=== PATIENT | male | born 1940 | race Caucasian/White ===

== ENCOUNTER 2019-06-28 11:39 | Inpatient (IN) | payer MEDICARE, MEDICAID, SELFPAY ==
[2019-06-28] VITALS (10 sets, daily range): BP systolic 158–170; BP diastolic 75–91; PULSE 64–94; RESP 22–38; TEMP 36.4–37.6; O2SAT 93–97; BMI 35.7
--- NOTE | ~2019-06-28 | XR_ITS ---
EXAMINATION: XR chest 2V EXAM DATE: 06/28/2019 12:39 INDICATION: Shortness of breath. TECHNIQUE: Frontal and lateral projections of the chest obtained and reviewed. Comparison is made to prior examination from 03/11/2010. FINDINGS: Again there is cardiomegaly. There is single lead pacemaker/AICD device seen with tip proj ecting over the expected location of right ventricle. There is pulmonary vascular congestion. There i s indistinct reticulation with a bibasal predominance which may indicate pulmonary edema. Infection n ot excludable. Possible small pleural effusions. There is no pneumothorax suspected. There are bony d egenerative changes. IMPRESSION: 1. Findings consistent with mild CHF exacerbation. 2. Pneumonia not excludable. Reviewed, dictated and finalized at location B.
--- NOTE | 2019-06-28 11:52 | ED.SOB ---
HPI - SOB/Dyspnea General Chief Complaint: Shortness of Breath/Dyspnea Stated Complaint: sob, cough Time Seen by Provider: 06/28/19 11:48 Source: patient and family Limitations: no limitations History of Present Illness HPI Narrative: Patient presented to the emergency department for evaluation of shortness of breath. Patient reportedly was placed on azithromycin for cough, congestive type symptoms by his primary care provider, but has had worsening cough and shortness of breath over the past 2 days despite taking that medication. Patient has no history of COPD. He is not on any home oxygen. He denies any chest pain or belly pain. He denies fever. He reports mild congestion, denies sore throat. No belly pain, no weakness. Related Data Home Medications Medication Instructions Recorded Confirmed azithromycin 500 mg PO DAILY 06/28/19 06/28/19 Allergies Allergy/AdvReac Type Severity Reaction Status Date / Time No Known Allergies Allergy Verified 06/28/19 12:01 Review of Systems Review of Systems: Narrative: CONSTITUTIONAL: Denies fever, chills, or sweats. EYES: Denies visual changes, redness, or discharge. ENT: Reports rhinorrhea, congestion CARDIOVASCULAR: Denies chest pain, palpitations, or edema. RESPIRATORY: Reports cough and shortness of breath GASTROINTESTINAL: Denies abdominal pain, nausea, vomiting, or diarrhea. GENITOURINARY: Denies dysuria or hematuria. SKIN: Denies rash or itching. MUSCULOSKELETAL: Denies back pain, joint pain, or myalgia. NEUROLOGIC: Denies headache, numbness, or weakness. [facility] Past Medical History Medical History (Updated 06/28/19 @ 13:57 by Mackenzie Gallo MD) Degenerative joint disease Diabetes Gout Hyperlipidemia Hypertension Nephrolithiasis Surgical History Surgical History (Updated 06/28/19 @ 12:25 by Mackenzie Gallo MD) History of arthroplasty of right knee Family History Family History (Updated 05/11/13 @ 11:41 by DOCTOR UNKNOWN) Other Cerebrovascular accident Family history of arthritis Family history of heart disease in male family member before age 55 Social History Social History Smoking status: Heavy tobacco smoker Alcohol intake: current Exam Narrative: Exam Narrative: GENERAL: Awake, alert, conversant HEAD: Normocephalic, atraumatic. EYES: PERRLA and EOMI. ENT: Nares clear, no rhinorrhea or epistaxis. Mucous membranes moist. NECK: Supple. CHEST: Mild tachypnea, mild hypoxemia, able to converse in short sentences, coarse breath sounds HEART: Regular rate, sinus rhythm ABDOMEN:Non distended, non tender EXTREMITIES: Normal range of motion. No edema. SKIN: Warm, dry, no rash. NEURO:No focal deficits. Alert and oriented x3 Course Course Emergency Course: Patient presented to the emergency department for evaluation of cough and shortness of breath. At the time of initial assessment, patient is hypertensive, tachypneic, borderline hypoxic with increased work of breathing, moderate respiratory distress. IV access obtained and labs are drawn. Obtain blood cultures as well. Laboratory results show no severe leukocytosis. Elevation in BNP. Mild elevation in troponin. Chest x-ray concerning for cardiomegaly, pulmonary edema consistent with acute congestive heart failure exacerbation. Patient was given IV Lasix, did respond with increased urine output, but continued to have shortness of breath. Given possible pneumonia on chest x-ray slightly obscured by pulmonary edema, we will go ahead and give patient oral antibiotics as well. At this point, I feel patient symptoms are most consistent with acute congestive heart failure exacerbation. At the time is of reassessment, patient continues to be tachypneic. At this point, I feel the patient needs some respiratory support, but because the patient is a PE URI with pneumonia and hypoxia, wanted to avoid additional air slicing procedures, will place the patient on high flow nasal cannula. I d
--- NOTE | 2019-06-28 11:55 | ECG_ITS ---
Measurements Intervals Anna Rate: 100 P: 0 NV: 198 QRS: -43 QRSD: 142 T: 98 QT: 374 QTc: 482 Interpretive Statements SINUS TACHYCARDIA ATRIAL AND VENTRICULAR PREMATURE COMPLEXES LEFT AXIS DEVIATION LEFT BUNDLE BRANCH BLOCK INFERIOR INFARCT OR DUE TO LBBB BASELINE WANDER- V4-V6 ABNORMAL ECG Electronically Signed On 06-28-2019 13:30:40 CDT by Daniel Pritchard D.O.
[2019-06-28 12:11] LABS: Basophils Absolute Auto 0.1 K/mm3 (0.0-0.1); Basophils Percent Auto 0.9 % (0.2-1.2); Eosinophils Absolute Auto 0.3 K/mm3 (0-0.3); Eosinophils Percent Auto 3.6 % (0-4.4); Hematocrit 43.8 % (42.0-52.0); Hemoglobin 14.4 g/dL (14.0-18.0); Immature Granulocyte Absolute 0.04 K/mm3 (0.00-0.031); Immature Granulocyte Percent A 0.5 % (0-0.5); Lymphocytes Absolute Auto 1.63 K/mm3 (0.9-3.2); Mean Corpuscular HGB Conc 32.9 g/dl (32-36); Mean Corpuscular Volume 94.2 fl (80-100); Mean Platelet Volume 10.7 fl (7.4-10.4); Monocytes Absolute Auto 0.6 K/mm3 (0.1-0.6); Monocytes Percent Auto 7.6 % (2.6-8.5); Neutrophils Absolute Auto 5.2 K/mm3 (1.3-6.7); Neutrophils Percent Auto 66.4 % (45.5-73.1); Platelet Count Result 254 k/mm3 (150-375); Red Blood Count 4.65 M/mm3 (4.6-6.20); Red Cell Distribution Width 13.1 % (11.5-14.5); White Blood Count 7.8 K/mm3 (4.5-10.0)
[2019-06-28 12:25] LABS: Blood Urea Nitrogen 19 mg/dL (9-20); Calcium 8.9 mg/dL (8.4-10.2); Carbon Dioxide 25 mmol/L (22-30); Chloride 105 mmol/L (98-107); Estimated CRCL calculation 61 ml/min; Estimated Glomerular Filt Rate > 60; Glucose 232 mg/dL (75-110); Potassium 3.9 mmol/L (3.4-5.0); Sodium 139 mmol/L (137-145)
[2019-06-28] MEDS: IPRATROPIUM BR 0.02% INH SOLN 0.5 MG/2.5 ML VIAL 1 MG INHALATION (12:44)
[2019-06-28] MEDS: SODIUM CHLORIDE 0.9% IV 500 ML 999 ML IV CONT (12:44)
[2019-06-28] MEDS: ALBUTEROL SULFATE NEB 2.5 MG/0.5 ML INH 5 MG INHALATION (12:45)
[2019-06-28] MEDS: MAGNESIUM SULF 2 GM/WATER 50ML 2 GM/50 ML BAG IVPB (12:47)
[2019-06-28 13:04] LABS: Alveolar/Arterial O2 Gradient 61.3 mmHg; Base Excess ABG 1.4 mEq/l (+/-2.0); Carboxyhemoglobin 0.9 % THb (0-2.0); Fractional Inspired Oxygen 28 %; HCO3 ABG 27.4 mEq/l (22.0-26.0); Methemoglobin ABG 0.2 %THb (0-1.5); Oxygen Content ABG 19.8 %vol (16.0-22.0); Oxygen Saturation ABG 95.6 % (95.0-100.0); Oxyhemoglobin 94.3 % THb (90.0-100.0); PCO2 ABG 48.3 mmHg (35.0-45.0); PO2 ABG 81.3 mmHg (80.0-100.0); Reduced Hemoglobin 4.6 %THb (0-5.0); Total Hemoglobin 14.9 g/dL (12.0-18.0); pH ABG 7.371 (7.350-7.450)
[2019-06-28 13:05] LABS: Device NASAL CANNULA; Site Drawn LEFT BRACHIAL
[2019-06-28] MEDS: FUROSEMIDE INJ 40 MG/4 ML VIAL 20 MG IV PUSH ×2 (13:19→17:00)
[2019-06-28 13:41] LABS: Prothrombin Time 13.1 Seconds (11.1-14.7)
[2019-06-28 13:42] LABS: Partial Thromboplastin Time 26.4 SECONDS (22.3-36.8)
[2019-06-28 13:50] LABS: NT Pro B Type Natriuretic Pept 4110 PG/ML (5-100)
[2019-06-28 13:53] LABS: Troponin I 0.056 ng/mL (0.000-0.034)
[2019-06-28] MEDS: DOXYCYCLINE HYCLATE 100 MG TABLET PO ×2 (14:45→21:35)
--- NOTE | 2019-06-28 15:55 | PCRCNOTE ---
PT. WAS NOT STARTED ON BIPAP IN E.D. PER DR. LOUIE. DR LOUIE STATED TO PLACE ON A HIGH FLOW NASAL CANNULA INSTEAD. O2 SATS 95% ON 7LPM O2 VIA HIGH FLOW NASAL CANNULA.
[2019-06-28 16:20] LABS: Glucose Point of Care 155 (65-105)
--- NOTE | 2019-06-28 17:03 | PM.IMHP ---
H&P: HPI History of Present Illness Chief complaint: chf exacerbation,pneumonia,hypoxemia Narrative: Hai Fontana is a 78 year old male with a past medical history of congestive heart failure. He stated he has been taking all of his routine medication. He has been more short of breath for last month. He short of breath with exertion. And trace edema to his extremities. He has no fever chills. The patient has not been exposed to anybody has been sick or has a fever. The patient stated that he did have some congestion you in his sinuses and upper chest and was unable to use his BiPAP. The patient recently took Z-Marcos about a week ago and did not have any related. He has had a productive cough of clear phlegm. His shortness of breath got worse the last 2 days. He has no sore throat. The patient was given magnesium and IV Lasix. He was given doxycycline as well. Looks like he got 2 doses of 20 mg of Lasix today. He does have a regular slag expander and states that he probably had an echo approximately 6 weeks ago. Date of service 06/28/2019 Review of Systems Review of Systems: Narrative: No fever or chills. All systems reviewed & are unremarkable except as noted in HPI and below Constitutional: Constitutional: Reports as per HPI and Reports no additional constitutional complaints Eyes: Eyes: Reports as per HPI and Reports no additional eye complaints ENT: Reports system reviewed and no additional complaints, except as documented and Reports Normal hearing present Cardiovascular: Cardiovascular: Reports no additional cardiovascular complaints Respiratory: Respiratory: Reports no additional respiratory complaints and Reports no additional respiratory complaints Gastrointestinal: Gastrointestinal: Reports as per HPI and Reports no additional gastrointestinal complaints Musculoskeletal: Musculoskeletal: Reports no additional musculoskeletal complaints Integumentary/Breasts: Skin/Breast: Reports system reviewed and no additional complaints, except as docu and Reports as per HPI Neurologic: Reports system reviewed and no additional complaints, except as documented, Reports as per HPI and Reports Normal hearing present Psychiatric: Psychiatric: Reports no additional psychiatric complaints and Reports as per HPI Endocrine: Endocrine: Reports no additional endocrine complaints Hematologic/Lymphatic: Hematologic/Lymphatic: Reports no additional hematologic/lymphatic complaints Allergic/Immunologic: Allergic/Immunologic: Reports no additional allergic/immunologic complaints [facility] Past Medical History Medical History (Updated 06/28/19 @ 17:19 by Dinora Ayala NP) Anxiety CHF (congestive heart failure), NYHA class I Degenerative joint disease Diabetes Gout Hyperlipidemia Hypertension Nephrolithiasis Pacemaker Surgical History Surgical History (Updated 06/28/19 @ 12:25 by Mackenzie Gallo MD) History of arthroplasty of right knee Family History Family History (Updated 06/28/19 @ 17:11 by Dinora Ayala NP) Father Heart disease Mother Hypertension Dementia Other Cerebrovascular accident Family history of arthritis Family history of heart disease in male family member before age 55 Social History Social History (Updated 06/28/19 @ 17:12 by Dinora Ayala NP) Social History: Is with his . 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 He has 4 children. Used to smoke long time ago. No alcohol use or illicit drugs. He is a full code. Smoking status: Former smoker Tobacco type: cigarettes Second hand tobacco smoke exposure: Yes Smoking end date: 06/28/19 Alcohol intake: current Drinks per week: 2 Substance use: never Living arrangements: with family Occupation/Education: occupation Gender identity (if verbalized by the patient): Male Spiritual care concerns: No Agree to blood products: No Meds Home Medications and Allergies Home Medications Medication
--- NOTE | 2019-06-28 17:26 | ADMGEN ---
This patient, Hai Fontana, was admitted to Intensive Care Unit-5. Patient/family oriented to hospital policies and general routines including ID bracelet, bed and alarms, visiting hours, pain management, procedures, bathroom and other care routines, personal items, smoking policy, room service/diet, and visiting hours. Valuables list has been completed. Information on how to activate the Rapid Response Team has been discussed. Patient/Family are encouraged to report perceived risks to care and to ask questions if they do not understand what they are told or what they should do.
[2019-06-28 18:50] LABS: Alanine Aminotransferase 45 U/L (4-50); Albumin Level 3.5 g/dL (3.5-5.1); Alkaline Phosphatase 94 U/L (38-126); Aspartate Amino Transferase 36 U/L (17-59); Bilirubin,Total 0.5 mg/dL (0.2-1.3); CRP 0.6 mg/dL (<1.0); Lactate Dehydrogenase 400 U/L (313-618)
[2019-06-28 19:04] LABS: Troponin I 0.073 ng/mL (0.000-0.034)
[2019-06-28] MEDS: carvediloL 25 MG TABLET PO (20:23)
[2019-06-28] MEDS: GLIMEPIRIDE 2 MG TABLET 4 MG PO (20:23)
[2019-06-28 20:45] LABS: Glucose Point of Care 139 (65-105)
[2019-06-28 22:22] LABS: Glucose Point of Care 114 (65-105)
[2019-06-28 22:40] LABS: Lactic Acid Reflex 1.1 mmol/L (0.7-2.1)
[2019-06-29] VITALS (13 sets, daily range): BP systolic 127–168; BP diastolic 53–105; PULSE 69–98; RESP 20–32; TEMP 36.1–36.9; O2SAT 96–99
--- NOTE | 2019-06-29 | ECHO_ITS ---
Patient Info Name: Hai Fontana Age: 78 years : 1940 Gender: Male Ht: 68 in Wt: 235 lbs BSA: 2.30 m2 HR: 88 bpm BP: 179 / 72 mmHg Heart Rhythm: Paced Technical Quality: Fair Exam Date: 06/29/2019 9:52 AM Exam Location: [facility] Patient Status: Inpatient Admit Date: 06/28/2019 Staff Ordering Physician: Dinora Ayala NP Potato Loader: Haris Shane RDCS Attending Provider: Sonido Ovalle MD Referring Physician: Lucy MONTALVO; Exam Type: CA echo doppler color flow Study Info Indications I50.9 - Heart failure, unspecified Complete two-dimensional, color flow and Doppler transthoracic echocardiogram is performed. History/Risk Factors CHF exacerbation; SOB, DM2, HTN. Summary 1. Left ventricular chamber dimension is moderately enlarged. 2. Left ventricular systolic function is severely reduced, estimated at 30-35%. 3. Linear artifact in right ventricle suggestive of catheter(s), pacemaker lead(s), or ICD lead(s). 4. There is mild aortic valve sclerosis. 5. Valve area calculated to 1.47 cm2 using the continuity equation. 6. There is mild mitral valve regurgitation. Left Ventricle Left ventricular chamber dimension is moderately enlarged. Left ventricular systolic function is severely reduced, estimated at 30-35%. The left ventricular diastolic function is grade I diastolic dysfunction. Right Ventricle Right ventricular chamber dimension is normal. Linear artifact in right ventricle suggestive of catheter(s), pacemaker lead(s), or ICD lead(s). Left Atria Left atrial chamber dimension is mildly enlarged. Right Atria Right atrial chamber dimension is normal. Aortic Valve The aortic valve is trileaflet. There is mild aortic valve sclerosis. There is mild aortic valve stenosis. Valve area calculated to 1.47 cm2 using the continuity equation. Pulmonic Valve The pulmonic valve is not well visualized. Mitral Valve The mitral valve has normal leaflets. There is mild mitral valve regurgitation. Tricuspid Valve The tricuspid valve leaflets are not well visualized. Pericardium/Pleural The pericardium appears normal. There is trivial pericardial effusion. Aorta The aortic root size at the sinus of Valsalva is normal. Left Ventricular Outflow Tract Name Value Normal LVOT Doppler LVOT Peak Velocity 89 cm/s LVOT Peak Gradient 3 mmHg LVOT Mean Gradient 2 mmHg LVOT VTI 16 cm LVOT VTI/AV VTI Ratio 0.5 Mitral Valve Name Value Normal MV Doppler MV Decel Tucker 535 cm/s2 MV PHT 44 ms MV Area (PHT) 5.0 cm2 4.0-5.0 MV Diastolic Function MV E Peak Velocity 81 cm/s MV A Pe
[2019-06-29 04:50] LABS: Hemoglobin A1C 7.8 % (<5.7)
[2019-06-29 06:16] LABS: Alanine Aminotransferase 42 U/L (4-50); Albumin Level 3.8 g/dL (3.5-5.1); Alkaline Phosphatase 108 U/L (38-126); Aspartate Amino Transferase 29 U/L (17-59); Bilirubin,Total 0.8 mg/dL (0.2-1.3); Blood Urea Nitrogen 20 mg/dL (9-20); Calcium 9.3 mg/dL (8.4-10.2); Carbon Dioxide 33 mmol/L (22-30); Chloride 99 mmol/L (98-107); Estimated CRCL calculation 55 ml/min; Estimated Glomerular Filt Rate 59; Glucose 163 mg/dL (75-110); Magnesium 1.6 mg/dL (1.6-2.3); Potassium 4.2 mmol/L (3.4-5.0); Sodium 137 mmol/L (137-145)
[2019-06-29 06:32] LABS: Thyroid Stimulating Hormone Reflex 0.959 uIU/mL (0.465-4.68)
[2019-06-29 07:23] LABS: Glucose Point of Care 155 (65-105)
[2019-06-29] MEDS: carvediloL 25 MG TABLET PO ×2 (08:54→16:28)
[2019-06-29] MEDS: GLIMEPIRIDE 2 MG TABLET 4 MG PO ×2 (08:54→16:28)
[2019-06-29] MEDS: allopurinoL 300 MG TABLET PO (08:54)
[2019-06-29] MEDS: buPROPion HCL XL (24 HR) 150 MG TABCR PO (08:54)
[2019-06-29] MEDS: SPIRONOLACTONE 25 MG TABLET PO (08:54)
[2019-06-29] MEDS: DOXYCYCLINE HYCLATE 100 MG TABLET PO ×2 (08:54→20:16)
[2019-06-29] MEDS: FUROSEMIDE INJ 40 MG/4 ML VIAL IV PUSH ×2 (08:55→16:28)
[2019-06-29 12:45] LABS: Glucose Point of Care 184 (65-105)
--- NOTE | 2019-06-29 13:07 | PM.IMPN ---
Progress Note: A&P Assessment and Plan (1) Acute exacerbation of congestive heart failure: Qualifiers: Heart failure type: systolic Qualified Code(s): I50.23 - Acute on chronic systolic (congestive) heart failure Code(s): I50.9 - Heart failure, unspecified Status: Acute Assessment and Plan: Clinically improving. Stil requiring oxygen at 2.5 L but does not use at home. Will continue IV Lasix. Continue Coreg and spironolactone. Echocardiogram results pending. Will transfer to medical floor as stable. Of note, imaging on admission with findings more consistent with CHF exacerbation but pneumonia not excludable. Clinically does not appear to have pneumonia will leave oral doxycycline in place for now as COVID-19 testing was initiated through [facility]. COVID-19 testing currently pending. Echocardiogram results available this evening with EF 30-35%. Patient already with AICD in place. (2) Elevated troponin: Code(s): R79.89 - Other specified abnormal findings of blood chemistry Status: Acute Assessment and Plan: Minimal elevation. No chest pain. No ACS. Result of CHF. Telemetry reviewed on 06/29/2019 with sinus rhythm. Will continue to monitor clinically. (3) Diabetes: Qualifiers: Diabetes mellitus complication status: without complication Diabetes mellitus terminal superintendent insulin use: with group home use Diabetes mellitus type: type 2 Qualified Code(s): E11.9 - Type 2 diabetes mellitus without complications; Z79.4 - correction (current) use of insulin Code(s): E11.9 - Type 2 diabetes mellitus without complications Status: Chronic Assessment and Plan: HgbA1C 7.8. Glucose reviewed on 06/29/2019 with acceptable readings below 200 this morning. Lantus held this am with glimepiride given. Will continue to monitor glucose and adjust treatment as needed. Sliding scale insulin as available. (4) Hypertension: Qualifiers: Hypertension type: essential hypertension Qualified Code(s): I10 - Essential (primary) hypertension Code(s): I10 - Essential (primary) hypertension Status: Chronic Assessment and Plan: Blood pressure reviewed on 06/29/2019. Will continue with Coreg, spironolactone and IV Lasix in place. Will adjust treatment as needed. (5) Gout: Qualifiers: Chronicity: chronic Gout etiology: unspecified cause Gout site: unspecified site Presence of tophus: without tophus Qualified Code(s): M1A.9XX0 - Chronic gout, unspecified, without tophus (tophi) Code(s): M10.9 - Gout, unspecified Status: Chronic Assessment and Plan: Continue allopurinol. No acute issue. (6) Anxiety: Code(s): F41.9 - Anxiety disorder, unspecified Status: Acute Assessment and Plan: Mood presently stable. Will continue bupropion. (7) DVT prophylaxis: Code(s): Z29.9 - Encounter for prophylactic measures, unspecified Status: Acute Assessment and Plan: SCDs. Time Spent With Patient Time with patient: 15 - 25 minutes Subjective Date/time seen: 06/29/19 13:07 Interval history: Date of Service: 06/29/2019. Admitted with CHF exacerbation, possible pneumonia. Feels better today. Wants to go home. Denies shortness of breath and cough. Denies chest pain. Does complain of abdominal upset. No vomiting. Review of Systems Review of Systems: Narrative: Feeling better. Constitutional: Constitutional: Denies chills and Denies fever(s) ENT: Denies nasal congestion and Denies nasal discharge Cardiovascular: Cardiovascular: Denies chest pain Respiratory: Respiratory: Denies cough and Denies dyspnea Gastrointestinal: Gastrointestinal: Denies abdominal pain, Denies nausea and Denies vomiting Comments: stomach upset Genitourinary: Comments: catheter in place Musculoskeletal: Musculoskeletal: Reports no additional musculoskeletal complaints Integumentary/Breasts: Skin/Breast:
--- NOTE | 2019-06-29 15:19 | PC.NURSE ---
Patient arrived on 3 med/surg @1500. Patient A&Ox3, call light placed by patient, bed alarm on, patient oriented to room.
--- NOTE | 2019-06-29 15:39 | PC.NURSE ---
Patient was on droplet precaution. Patient on 3L/NC.
--- NOTE | 2019-06-29 16:30 | PC.NURSE ---
Noted Covid testing cancelled per reference lab. Verified with Delfina Shaw RN that swabs sent to state reference lab this am and results are pending.
[2019-06-29 16:40] LABS: Glucose Point of Care 153 (65-105)
[2019-06-29 23:44] LABS: Glucose Point of Care 206 (65-105)
[2019-06-30] VITALS (10 sets, daily range): BP systolic 125–136; BP diastolic 50–67; PULSE 69–92; RESP 18–22; TEMP 36.4–37.3; O2SAT 86–97
[2019-06-30 06:52] LABS: Blood Urea Nitrogen 27 mg/dL (9-20); Carbon Dioxide 36 mmol/L (22-30); Chloride 97 mmol/L (98-107); Estimated CRCL calculation 60 ml/min; Estimated Glomerular Filt Rate > 60; Glucose 183 mg/dL (75-110); Potassium 4.1 mmol/L (3.4-5.0); Sodium 136 mmol/L (137-145)
[2019-06-30 09:46] LABS: Glucose Point of Care 168 (65-105)
[2019-06-30] MEDS: FUROSEMIDE INJ 40 MG/4 ML VIAL IV PUSH (09:55)
[2019-06-30] MEDS: GLIMEPIRIDE 2 MG TABLET 4 MG PO (09:55)
[2019-06-30] MEDS: buPROPion HCL XL (24 HR) 150 MG TABCR PO (09:56)
[2019-06-30] MEDS: carvediloL 25 MG TABLET PO (09:56)
[2019-06-30] MEDS: SPIRONOLACTONE 25 MG TABLET PO (09:56)
[2019-06-30] MEDS: allopurinoL 300 MG TABLET PO (10:00)
[2019-06-30] MEDS: DOXYCYCLINE HYCLATE 100 MG TABLET PO (10:00)
--- NOTE | 2019-06-30 11:42 | PM.IMPN ---
Progress Note: A&P Assessment and Plan (1) Acute exacerbation of congestive heart failure: Qualifiers: Heart failure type: systolic Qualified Code(s): I50.23 - Acute on chronic systolic (congestive) heart failure Code(s): I50.9 - Heart failure, unspecified Status: Acute Assessment and Plan: Clinically improved. He does remain on 2 L of oxygen which he normally does not use at home but has been unable to use his CPAP for sleep apnea due to COVID suspect. Will still provide order for home oxygen with arrangements to be made prior to discharge. Will return him to his home oral Lasix dose as he has been diuresing well. Continue Coreg and spironolactone. Echocardiogram with EF 30-35% but already has AICD in place. As noted, COVID-19 testing was initiated through [facility] but clinically not consistent with pneumonia and will therefore not continue oral doxycycline at discharge. Will discharge today. Discontinue Rodriguez catheter. (2) Elevated troponin: Code(s): R79.89 - Other specified abnormal findings of blood chemistry Status: Acute Assessment and Plan: Minimal elevation. No chest pain. No ACS. Result of CHF. No additional evaluation needed this time. Echocardiogram as noted above. (3) Diabetes: Qualifiers: Diabetes mellitus type: type 2 Diabetes mellitus director long term care insulin use: with director long term care use Diabetes mellitus complication status: without complication Qualified Code(s): E11.9 - Type 2 diabetes mellitus without complications; Z79.4 - [facility] (current) use of insulin Code(s): E11.9 - Type 2 diabetes mellitus without complications Status: Chronic Assessment and Plan: HgbA1C 7.8. Glucose reviewed on 06/30/2019 with acceptable readings. Lantus has been held here with glimepiride continued. Suspect blood sugar will increase again at home and may resume Lantus at home although he should continue to monitor glucose and follow-up with primary physician. (4) Hypertension: Qualifiers: Hypertension type: essential hypertension Qualified Code(s): I10 - Essential (primary) hypertension Code(s): I10 - Essential (primary) hypertension Status: Chronic Assessment and Plan: Blood pressure reviewed on 06/30/2019 and stable. Will continue Coreg, spironolactone and Lasix. (5) Gout: Qualifiers: Gout site: unspecified site Gout etiology: unspecified cause Chronicity: chronic Presence of tophus: without tophus Qualified Code(s): M1A.9XX0 - Chronic gout, unspecified, without tophus (tophi) Code(s): M10.9 - Gout, unspecified Status: Chronic Assessment and Plan: Continue allopurinol. No acute issue. (6) Anxiety: Code(s): F41.9 - Anxiety disorder, unspecified Status: Acute Assessment and Plan: Mood stable. Will continue bupropion. (7) DVT prophylaxis: Code(s): Z29.9 - Encounter for prophylactic measures, unspecified Status: Acute Assessment and Plan: SCDs. Time Spent With Patient Time with patient: 15 - 25 minutes Subjective Date/time seen: 06/30/19 11:42 Interval history: Date of Service: 06/30/2019. Admitted with CHF exacerbation, possible pneumonia. Feeling better. Denies shortness of breath and cough. No chest pain. No abdominal pain. Review of Systems Review of Systems: Narrative: Feeling better. Constitutional: Constitutional: Denies chills and Denies fever(s) ENT: Denies nasal congestion and Denies nasal discharge Cardiovascular: Cardiovascular: Denies chest pain Respiratory: Respiratory: Denies cough and Denies dyspnea Gastrointestinal: Gastrointestinal: Denies abdominal pain, Denies nausea and Denies vomiting Genitourinary: Comments: catheter in place Musculoskeletal: Musculoskeletal: Reports no additional musculoskeletal complaints Integumentary/Breasts: Skin/Breast: Denies rash Neurologic: Denies headache(s) Psychiatri
[2019-06-30 13:11] LABS: Glucose Point of Care 213 (65-105)
[2019-06-30] MEDS: INSULIN ASPART (*BKC) 100 UNITS/ML SUB-Q (13:39)
--- NOTE | 2019-06-30 15:42 | HOMEO2EVAL ---
Home Oxygen Evaluation RC: Home Oxygen (O2) Evaluation Start: 06/30/19 15:37 Freq: Status: Active Protocol: RPE Activity Type Activity Date Activity User E-Sign Co-Sign Detail Recorded Client Recorded Date Recorded By Document 06/30/19 15:29 [facility] [id number] 06/30/19 15:40 [facility] Document 06/30/19 15:30 [place] [email or web address] 06/30/19 15:40 [facility] Document 06/30/19 15:33 [facility] [id number] 06/30/19 15:40 [facility] Document 06/30/19 15:36 [facility] [id number] 06/30/19 15:41 [facility] Document 06/30/19 15:38 [facility] [id number] 06/30/19 15:40 [facility] 06/30/19 06/30/19 06/30/19 15:29 15:30 15:33 Home O2 Evaluation Test Phase Resting Resting Exercise Oxygen Delivery Room Air Nasal Cannula Nasal Cannula Oxygen Flow Rate (L/min) 2 2 Pulse Oximetry (90-100 %) 86 L 88 L 90 Pulse Rate (60-100 beats/min) 82 88 85 Activity Tolerance Good Good Rating of Perceived Dyspnea (PD) +1 Mild, +1 Mild, Noticeable to Noticeable to the Participant the Participant but Not to an but Not to an Observer Observer Rate of Perceived Exertion (PE) Treatment Charges O2 Evaluation 06/30/19 06/30/19 15:36 15:38 Home O2 Evaluation Test Phase Exercise Resting Oxygen Delivery Nasal Cannula Nasal Cannula Oxygen Flow Rate (L/min) 2 2 Pulse Oximetry (90-100 %) 90 90 Pulse Rate (60-100 beats/min) 92 91 Activity Tolerance Good Good Rating of Perceived Dyspnea (PD) +1 Mild, +1 Mild, Noticeable to Noticeable to the Participant the Participant but Not to an but Not to an Observer Observer Rate of Perceived Exertion (PE) 9 Very light 9 Very light Treatment Charges
--- NOTE | 2019-06-30 16:48 | PM.DS ---
DS: Diagnosis Admitting Diagnosis Admitting Diagnosis: Acute on chronic systolic (congestive) heart failure Discharge Diagnosis (1) Acute exacerbation of congestive heart failure: Qualifiers: Heart failure type: systolic Qualified Code(s): I50.23 - Acute on chronic systolic (congestive) heart failure Code(s): I50.9 - Heart failure, unspecified Status: Acute (2) Elevated troponin: Code(s): R79.89 - Other specified abnormal findings of blood chemistry Status: Acute (3) Diabetes: Qualifiers: Diabetes mellitus complication status: without complication Diabetes mellitus continuous churn buttermaker insulin use: with continuous churn buttermaker use Diabetes mellitus type: type 2 Qualified Code(s): E11.9 - Type 2 diabetes mellitus without complications; Z79.4 - intermediate project manager (current) use of insulin Code(s): E11.9 - Type 2 diabetes mellitus without complications Status: Chronic (4) Hypertension: Qualifiers: Hypertension type: essential hypertension Qualified Code(s): I10 - Essential (primary) hypertension Code(s): I10 - Essential (primary) hypertension Status: Chronic (5) Gout: Qualifiers: Chronicity: chronic Gout etiology: unspecified cause Gout site: unspecified site Presence of tophus: without tophus Qualified Code(s): M1A.9XX0 - Chronic gout, unspecified, without tophus (tophi) Code(s): M10.9 - Gout, unspecified Status: Chronic (6) Anxiety: Code(s): F41.9 - Anxiety disorder, unspecified Status: Acute DS: Summary Hospital Course Reason for hospitalization: Shortness of breath. Hospital Course: Date of Service of Discharge: June 30, 2019. History of Present Illness: Patient is a 78-year-old gentleman with known history of congestive heart failure, hypertension, hyperlipidemia and diabetes who presented to the emergency room with complaint of shortness of breath. He reports being more short of breath for the last month. Shortness of breath occurs with exertion. He also notes trace edema to his extremities. No recent fever or chills. No known exposures. He has had productive cough with clear sputum. In the emergency room, findings were more consistent with congestive heart failure but there was concern for possible pneumonia. He was therefore given Lasix as well as doxycycline. COVID testing was initiated. He was admitted for further evaluation and treatment. Course in Hospital: Patient was admitted to the IMU. He was started on IV Lasix with rapid improvement in his shortness of breath. He initially was on 5 L of oxygen but decreased to 2.5 L by the following morning after admission. He was eventually able to wean to 2 L of oxygen and was set up with home oxygen for discharge. Of note, patient was unable to use his CPAP while here in the hospital due to COVID suspect status. COVID testing results were not available by the time of discharge with patient advised to continue self isolation at discharge until results are known. In addition to IV Lasix patient was continued on Coreg and spironolactone. A new echocardiogram was obtained with EF 30-35% the patient already with AICD placed. He was able to transfer from IMU to the medical floor on 06/29/2019 where he remained for the duration of his stay. He did receive doxycycline during his stay but not continued as he was not felt to have pneumonia. He did have a Rodriguez catheter in place due to mobility issues but this was removed prior to discharge without difficulties. Patient's blood pressure was monitored throughout his stay and stable on his Coreg, spironolactone and Lasix. Glucose was also monitored. His Lantus was held while here with glimepiride continue due to lower glucose levels while in hospital. Plan to resume Lantus at home as it is expected he will resume his usual eating habits. He was however advised to monitor glucose and call his physician if glucose levels are too high or
--- NOTE | 2019-06-30 17:03 | PC.NURSE ---
1700 Discharged home with home 02 at 2l/min. Discharged instructions reviewed with patient including Covid-19 handout. Verbalized understanding of instructions given. Althea Jon RN
--- NOTE | 2019-07-06 11:47 | PC.NURSE ---
New M[place]racken spoke with patient and on July 04, 2019. Retest offered. Patient declined retest.
== END 2019-06-30 17:00 | disposition home or self-care (01) | DRG 293 ==
LOC: ANHED 14:36 → ANHICU 14:46 → ANH3MEDSUR 06-30 12:02 → ANHICU 07-02 14:08
PROVIDERS: Nurse Practitioner; Admitting Provider Internal Medicine; Emergency Provider Emergency Medicine; PCP Nurse Practitioner Adult Health; Visit Provider Hospitalist
DX: I11.0 Hypertensive heart disease with heart failure (principal); I50.23 Acute on chronic systolic (congestive) heart failure; Z20.828 Contact with and (suspected) exposure to other viral communicable diseases; R09.02 Hypoxemia; R79.89 Other specified abnormal findings of blood chemistry; E11.9 Type 2 diabetes mellitus without complications; F41.9 Anxiety disorder, unspecified; I10 Essential (primary) hypertension; M1A.9XX0 Chronic gout, unspecified, without tophus (tophi); E78.5 Hyperlipidemia, unspecified; M19.90 Unspecified osteoarthritis, unspecified site; G47.30 Sleep apnea, unspecified; Z96.651 Presence of right artificial knee joint; Z95.0 Presence of cardiac pacemaker; Z87.891 Personal history of nicotine dependence; Z79.4 Long term (current) use of insulin
CPT/HCPCS: 36415; 36600; 71046; 80048; 80053; 80076; 82375; 82728; 82805; 83036; 83050; 83605; 83615; 83735; 83880; 84443; 84484; 85025; 85610; 85730; 86140; 87040; 87635; 87804; 93005; 93306; 94618; 94640; 96365; 96375; 99285; A9270; J1815; J1940; J3475; J7040; U0002

== ENCOUNTER 2019-08-29 12:34 | Outpatient (CLI) | payer MEDICARE, MEDICAID, SELFPAY ==
--- NOTE | 2019-09-03 13:10 | WPDSIXMINUTE ---
Six Minute Walk Six Minute Walk: DOS: 08/29/2019 REQUESTING: Judith Kelsey NP REASON FOR TESTING: post pneumonia SIX MINUTE WALK This test was conducted per ATS guidelines. The initial saturation was 93%, and the pulse was 83. He used a walker during the test, walked for 6 minutes without stopping, with saturation between 87% and 96%. The pulse ranged from 68 to 97. There were periodic lapses in the oximeter reading which were due to artifact. He walked a total of 250 feet, 76.2 meters without stopping to rest. Towards the end of the walk, he had saturation between 87-89% for one minute, and he improved during the recovery period gradually increasing to 96%. IMPRESSION: Desaturation without sustained hypoxemia. Patient does not meet criteria for supplemental oxygen with exertion.
== END 2019-08-29 12:35 | disposition home or self-care (01) ==
PROVIDERS: PCP Nurse Practitioner Adult Health; Visit Provider Nurse Practitioner Adult Health
DX: Z99.81 Dependence on supplemental oxygen (principal)
CPT/HCPCS: 94618

== ENCOUNTER 2020-02-19 09:05 | Inpatient (IN) | payer MEDICARE, MEDICAID, SELFPAY ==
[2020-02-19] VITALS (27 sets, daily range): BP systolic 43–133; BP diastolic 25–113; PULSE 67–132; RESP 16–41; TEMP 35.9–36.3; O2SAT 80–100
--- NOTE | ~2020-02-19 | XR_ITS ---
XR chest 1V 02/19/2020 10:10 Indication: Transient alteration of awareness. Procedure: AP view of the chest Comparison: Comparison to multiple prior studies sequentially, with oldest reviewed study dated 04/04. Findings: Cardiomegaly. Pacemaker lead tip in the right ventricle. No focal air space disease, pulmon andrew edema, pleural effusion or suspected pneumothorax. No acute osseous abnormality. The degenerative changes of the glenohumeral joints. Impression: 1: No acute cardiopulmonary disease. 2: Cardiomegaly. Reviewed, dictated and finalized at location B. AL DECORATOR Impression: 1: No acute cardiopulmonary disease. 2: Cardiomegaly.
--- NOTE | ~2020-02-19 | XR_ITS ---
EXAMINATION: XR chest ET placement, XR abdomen NG/feed tube insert DATE: 02/19/2020 18:33 INDICATION: Endotracheal tube placement. Orogastric tube placement. TECHNIQUE: 1. Frontal view of the chest was obtained. 2. AP view of the abdomen was obtained. COMPARISON: Chest radiograph dated 02/19/2020 at 4:29 PM FINDINGS: Interval placement of an endotracheal tube with distal tip 4.0 cm above the chelsi. Right internal ju gular central venous catheter with distal tip at the midsuperior vena cava. Pulmonary vascular conges tion and mild perihilar edema. Streaky opacities at the bilateral lung bases which could represent at electasis or pneumonia. Cardiomegaly. Single lead cardiac pacemaker/defibrillator with distal tip at the right ventricle. Nasogastric tube tip in proximal side port in the body of the stomach. Gas is se en within the distal transverse colon. The lower abdomen and pelvis are excluded from the field-of-vi ew. IMPRESSION: 1. The tracheal tube and nasogastric tube in expected positions. 2. Likely congestive heart failure with cardiomegaly and mild perihilar edema. 3. Mild streaky bibasilar opacities and favor atelectasis over pneumonia. Reviewed, dictated and finalized at location A. TS BOOK WRITER IMPRESSION: 1. The tracheal tube and nasogastric tube in expected positions. 2. Likely congestive heart failure with cardiomegaly and mild perihilar edema. 3. Mild streaky bibasilar opacities and favor atelectasis over pneumonia.
--- NOTE | ~2020-02-19 | CT_ITS ---
EXAMINATION: CT brain wo con DATE: 02/19/2020 10:03 INDICATION: Altered mental status TECHNIQUE: Computed tomography (CT) of the head was performed without intravenous contrast. The dose- length product was 605.33 mGy-cm. The mA was adjusted according to patient size. Iterative reconstruc tion technique was employed. COMPARISON: None FINDINGS: No acute intracranial hemorrhage, infarction, mass or mass effect. Generalized atrophy. The re are scattered mild periventricular and subcortical white matter changes, most likely related to sm all vessel ischemic disease (microangiopathy). No ventriculomegaly or midline shift. Paranasal sinuse s and mastoids are pneumatized. No depressed skull fractures IMPRESSION: 1. . No acute intracranial abnormality. 2: Chronic age-related findings. Reviewed, dictated and finalized at location B. MARKETING REPRESENTATIVE
--- NOTE | ~2020-02-19 | CT_ITS ---
EXAMINATION: CT abdomen pelvis wo con EXAM DATE: 02/19/2020 11:47 INDICATION: Sepsis. TECHNIQUE: Spiral CT of the abdomen and pelvis was performed without contrast. Axial, coronal and s agittal images were reviewed. The dose-length product (DLP) for this examination was 1401.46 mGy-cm. The exposure was tailored according to patient size (auto mA exposure control), and iterative recon struction (ASIR) was used as additional dose reduction technique. Comparison is made to prior examina tion from 05/02/2012. FINDINGS: Small amount of ascites in the left colic gutter. There is subcutaneous edema extending dimitri ng both flanks but more on the left. Left adrenal gland lesion measuring 1.8 cm unchanged consistent with benign histology, probably adeno ma. The liver, spleen, adrenal glands and pancreas are otherwise unremarkable. Gallbladder is unrem arkable. No biliary obstruction. There is no nephrolithiasis or hydronephrosis. There are prostat e radiation seeds. The bladder is unremarkable. There is no retroperitoneal or pelvic lymphadenopat hy. There is moderate scattered arteriosclerotic disease. The appendix is normal. The stomach and small bowel are unremarkable. There is expected amount of c olonic stool. No free intraperitoneal gas. There is cardiomegaly and small pericardial effusion. Left basilar subsegmental atelectasis. Severe right hip osteoarthritis. IMPRESSION: 1. No acute intra-abdominal findings. 2. Posterior flank subcutaneous edema. 3. Cardiomegaly and small pericardial effusion. 4. Left adrenal adenoma. Reviewed, dictated and finalized at location A. O NARRATOR
--- NOTE | ~2020-02-19 | XR_ITS ---
EXAMINATION: XR chest port-a-cath/central DATE: 02/19/2020 16:37 INDICATION: Central line placement TECHNIQUE: frontal view of the chest was obtained. COMPARISON: Chest radiograph dated 02/19/2020 FINDINGS: Increasing pulmonary vascular congestion and mild perihilar opacities suggesting pulmonary edema. Carmen ear discoid atelectasis at the lateral left lower lung zone superimposed. No pleural effusion or pneu mothorax. Cardiomegaly. Cardiac pacemaker/AICD with distal tip at the right ventricle. Right internal jugular central venous catheter with distal tip at the caudal superior vena cava. Severe left glenoh umeral osteoarthritis. IMPRESSION: 1. Pulmonary vascular congestion and mild perihilar opacities and would favor pulmonary edema over pn eumonia. 2. Cardiomegaly. Reviewed, dictated and finalized at location A. WORKER BROODER [employer]ARM IMPRESSION: 1. Pulmonary vascular congestion and mild perihilar opacities and would favor p ulmonary edema over pneumonia. 2. Cardiomegaly.
[2020-02-19 09:17] LABS: Glucose Point of Care 94 (65-105)
--- NOTE | 2020-02-19 09:24 | ECG_ITS ---
Measurements Intervals [place] Rate: 97 P: AL: 0 QRS: 228 QRSD: 157 T: 70 QT: 385 QTc: 491 Interpretive Statements ATRIAL FIBRILLATION RIGHT AXIS DEVIATION LEFT BUNDLE BRANCH BLOCK INFERIOR INFARCT OR DUE TO LBBB BASELINE WANDER- V4-V6 ABNORMAL ECG Electronically Signed On 02-19-2020 9:41:44 CATERPILLAR MECHANIC by Daniel Pritchard D.O.
[2020-02-19 09:42] LABS: Alveolar/Arterial O2 Gradient 47.4 mmHg; Base Excess ABG -7.4 mEq/l (+/-2.0); Device NASAL CANNULA; Fractional Inspired Oxygen 24 %; HCO3 ABG 17.7 mEq/l (22.0-26.0); Oxygen Saturation ABG 95.4 % (95.0-100.0); Oxyhemoglobin 93.3 % THb (90.0-100.0); PO2 ABG 82.1 mmHg (80.0-100.0); PO2 FiO2 Ratio Arterial Blood 3.42 %; Site Drawn LEFT BRACHIAL; Total Hemoglobin 15.2 g/dL (12.0-18.0); pH ABG 7.322 (7.350-7.450)
[2020-02-19 09:55] LABS: Basophils Percent Auto 0.1 % (0.2-1.2); Eosinophils Percent Auto 0.1 % (0-4.4); Hematocrit 49.2 % (42.0-52.0); Hemoglobin 15.9 g/dL (14.0-18.0); Immature Granulocyte Absolute 0.09 K/mm3 (0.00-0.031); Immature Granulocyte Percent A 0.6 % (0-0.5); Lymphocytes Absolute Auto 1.32 K/mm3 (0.9-3.2); Lymphocytes Percent Auto 8.1 % (18.3-44.2); Mean Corpuscular HGB Conc 32.3 g/dl (32-36); Mean Corpuscular Hemoglobin 31.9 pg (26-34); Mean Corpuscular Volume 98.6 fl (80-100); Mean Platelet Volume 12.2 fl (7.4-10.4); Monocytes Absolute Auto 1.4 K/mm3 (0.1-0.6); Monocytes Percent Auto 8.7 % (2.6-8.5); Neutrophils Absolute Auto 13.4 K/mm3 (1.3-6.7); Neutrophils Percent Auto 82.4 % (45.5-73.1); Nucleated Red Blood Cells Absolute Auto 0.1 K/mm3 (0.0-0.012); Nucleated Red Blood Cells Perc 0.4 % (0.0-0.2); Platelet Count Result 166 k/mm3 (150-375); Red Blood Count 4.99 M/mm3 (4.6-6.20); Red Cell Distribution Width 13.9 % (11.5-14.5); White Blood Count 16.2 K/mm3 (4.5-10.0)
[2020-02-19 10:04] LABS: Ammonia 35 umol/L (9-30)
[2020-02-19 10:07] LABS: INR 2.4; Partial Thromboplastin Time 29.2 SECONDS (22.3-36.8); Prothrombin Time 26.5 Seconds (11.1-14.7)
[2020-02-19 10:09] LABS: Lactic Acid Reflex 4.6 mmol/L (0.7-2.1)
[2020-02-19 10:33] LABS: Add Urine Microscopic? YES; Appearance Urine Clear (Clear); Bacteria Urine Trace /hpf; Bilirubin Urine Negative (Negative); Blood Urine Negative (Negative); Color Urine Amber (Yellow); Glucose Urine UA Negative (Negative); Hyaline Casts Urine 15-19 /lpf; Ketones Urine Negative (Negative); Leukocyte Esterase Ur Negative LEU/UL (Negative); Mucus Urine Rare /lpf; Nitrate Urine Negative (Negative); Protein Urine 2+ mg/dL (Negative); Specific Grav Ur 1.018 (1.001-1.035); Squamous Epithelial Cell Urine Rare /hpf (Few); WBC Urine 0-3 /hpf
[2020-02-19] MEDS: SODIUM CHLORIDE 0.9% IV 3,300 ML/1,000 ML BAG 999 ML IV CONT ×2 (10:34→13:00)
[2020-02-19 11:24] LABS: Albumin Level 3.6 g/dL (3.5-5.1); Alkaline Phosphatase 194 U/L (38-126); Anion Gap 10 mmol/L (8-16); Bilirubin,Total 5.7 mg/dL (0.2-1.3); Carbon Dioxide 27 mmol/L (22-30); Chloride 104 mmol/L (98-107); Creatine Kinase 242 U/L (55-170); Estimated CRCL calculation 25 ml/min; Estimated Glomerular Filt Rate 23; Glucose 108 mg/dL (75-110); Potassium 6.6 mmol/L (3.4-5.0); Sodium 141 mmol/L (137-145)
[2020-02-19 11:35] LABS: Troponin I 0.194 ng/mL (0.000-0.034)
[2020-02-19 11:40] LABS: Alanine Aminotransferase 928 U/L (4-50); Aspartate Amino Transferase 831 U/L (17-59)
--- NOTE | 2020-02-19 11:50 | PC.NURSE ---
Note pt's b/p decreasing despite IVF. Pt snoring loudly, awakens to sternal rub, but unable to keep eyes open or communicate. Pt's states that the patient normally snores loudly with sleeping but wears cpap when sleeping. Dr. Douglass aware of pt's bp and spo2. Pt replaced on o2 frequently, attempts to remove the o2.
[2020-02-19] MEDS: CALCIUM GLUCONATE 1,000 MG/10 ML VIAL 1000 MG IV PUSH (11:59)
[2020-02-19 12:00] LABS: Blood Urea Nitrogen 130 mg/dL (9-20)
[2020-02-19 12:04] LABS: Glucose Point of Care 89 (65-105)
[2020-02-19] MEDS: DEXTROSE 50% 25 GM/50 ML SYRINGE IV PUSH (12:06)
[2020-02-19] MEDS: INSULIN HUMAN REGULAR (*BKC) 100 UNITS/ML 10 UNITS IV PUSH (12:08)
--- NOTE | 2020-02-19 12:10 | ED.AMS ---
HPI - Altered Mental Status General Chief Complaint: Altered Mental Status Stated Complaint: AMS Time Seen by Provider: 02/19/20 09:13 Source: family Mode of arrival: EMS Limitations: clinical condition History of Present Illness HPI narrative: This patient is a 79 year old male with history of CHF, HTN, and DM who presents for home for evaluation of confusion. His states he has not wanted to take his medications or eat or drink since Thanksgi. She states he actually has not felt well in over a month and he was seen by his sporting goods salesperson, Dr. Aaron, and PCP. She found him this morning on the floor , and she states he fell out of bed. She last saw him last night at 10 pm. She also reports he is hallucinating and confused. Related Data Home Medications Medication Instructions Recorded Confirmed Lantus Solostar U-100 Insulin 72 unit SUBCUT DAILY 06/28/19 02/19/20 allopurinol 300 mg PO DAILY 06/28/19 02/19/20 carvedilol 25 mg PO BID 06/28/19 02/19/20 furosemide 40 mg PO DAILY 06/28/19 02/19/20 glimepiride 4 mg PO BID 06/28/19 02/19/20 spironolactone 25 mg PO DAILY 06/28/19 02/19/20 quinapril 20 mg PO BID 02/19/20 02/19/20 Allergies Allergy/AdvReac Type Severity Reaction Status Date / Time No Known Allergies Allergy Verified 02/19/20 09:42 Review of Systems Review of Systems: ROS unobtainable: Yes unobtainable due to medical condition PMFSH Past Medical History Medical History Anxiety CHF (congestive heart failure), NYHA class I Degenerative joint disease Diabetes Gout Hyperlipidemia Hypertension Nephrolithiasis Pacemaker Surgical History Surgical History (Updated 06/28/19 @ 12:25 by Mackenzie Gallo MD) History of arthroplasty of right knee Family History Family History (Updated 06/28/19 @ 17:11 by Dinora Ayala NP) Father Heart disease Mother Hypertension Dementia Other Cerebrovascular accident Family history of arthritis Family history of heart disease in male family member before age 55 Social History Social History (Updated 06/28/19 @ 17:12 by Dinora Ayala NP) Social History: Is with his . 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 He has 4 children. Used to smoke long time ago. No alcohol use or illicit drugs. He is a full code. Smoking status: Former smoker Tobacco type: cigarettes Second hand tobacco smoke exposure: Yes Smoking end date: 06/28/19 Alcohol intake: current Drinks per week: 2 Substance use: never Gender identity (if verbalized by the patient): Male Spiritual care concerns: No Agree to blood products: No Exam Const: General: ill appearing Limitations: altered mental status Other: oriented to self HENMT: Head: atraumatic Face and sinus: face symmetric Mouth: Yes moist mucous membranes and Yes dry mucous membranes Eyes: EOM: EOMs intact bilaterally Resp: Effort & Inspection: no retractions and tachypneic Auscultation: clear to auscultation bilaterally, no rales, no wheezes and diminished lung sounds Cardio: Rate: tachycardic Rhythm: abnormal rhythm Heart sounds: no murmurs GI: Inspection: distended GI Palp: Yes Soft to palpation, No Tenderness to palpation present (GI), No Guarding due to palpation present (GI) and No Rigid due to palpation Auscultation: Hypoactive bowel sounds present Neuro: General: moves all extremities Psych: Thought content: Yes Hallucination(s) present Course Reevaluation(s) Reevaluation #1: I have discussed with patient's that he is severely ill . she states she has spoken with their children and for now they would like to have everything done to see if he has improvement. Patient will go to ICU after central line placement on pressors. He is currently on his CPAP given history of sleep apnea. He appears to be resting comfortably now on CPAP. Date: 02/19/20 Time: 15:00 Consultations Consultation
[2020-02-19] MEDS: SODIUM BICARBONATE 8.4% 50 MEQ/50 ML VIAL IV PUSH (12:12)
[2020-02-19 12:50] LABS: Reflex Lactic Acid Yes or No Add Lactic
--- NOTE | 2020-02-19 13:10 | PC.NURSE ---
Consent for central line signed per pt's , and need for line explained. RT contacted to initiate cpap.
--- NOTE | 2020-02-19 13:14 | PC.NURSE ---
Pt's throat swabbed for covid with assistance. Preparing to initiate precautions to place on bipap. Pt confused, attempting to bite the tongue depressor when placed.
--- NOTE | 2020-02-19 13:58 | PC.NURSE ---
Central line attempt unsuccessful per Dr. Douglass. Pt agitated and continues to remove bipap placed. o2 placed at 3L/NC per Dr. Douglass.
[2020-02-19] MEDS: HALOPERIDOL LACTATE 5 MG/ML VIAL (14:18)
--- NOTE | 2020-02-19 14:55 | PC.NURSE ---
Pt's cpap replaced, replaced o2 to cpap at 2l/nc. Tolerates the cpap at present.
--- NOTE | 2020-02-19 15:57 | PC.NURSE ---
Dr. Douglass at bedside to attempt central line.
--- NOTE | 2020-02-19 16:30 | PC.NURSE ---
xray being done to confirm placement of central line.
--- NOTE | 2020-02-19 16:45 | PC.NURSE ---
Pt placed on 3L/Nc for transport to ICU. Pt remains difficult to arouse. Spo2 92% at present, bp 92/72. Preparing to transport to ICU.
--- NOTE | 2020-02-19 17:00 | PM.IMHP ---
H&P: HPI History of Present Illness Date/Time: 02/19/20 17:00 History and Physical/ Summary. Chief complaint: Altered mental status, weakness. Narrative: Hai Fontana is a 79-year-old male with insulin-dependent diabetes, hypertension, and congestive heart failure who presented to the emergency department earlier today via EMS from home with confusion and generalized weakness. The patient is unable to provide me with any history as within minutes of him arriving to the ICU he developed respiratory distress, requiring intubation. According to the electronic medical records and discussions that I had with his and son, he has not been feeling well since Thanksgi and has been refusing his medications and meals. It sounds as though he has only had a little bit to drink in that time frame. He has gotten progressively weak and confused, with reported hallucinations. They do not give any history to suggest underlying infection, however, and deny that he has been running fevers. He has not complained to them cold or flu-like symptoms, nausea, vomiting, diarrhea, or dysuria. In any event, his called EMS today as they could not get him up off of the floor after he fell out of bed and landed on his buttocks on his CPAP machine early this morning at 04:00. He was admitted to the intensive care unit through the emergency department with septic shock, acute kidney injury with significant uremia, hyperkalemia, and transaminitis. As mentioned above, he was in respiratory distress on arrival to the ICU and was intubated shortly thereafter. Within minutes he went into PEA and had several rounds of CPR with ROSC, however he went back into PEA within minutes. At 1 point in time he was in ventricular fibrillation and his own defibrillator did go off, and he was defibrillated externally several times as well. He received numerous pushes of epinephrine, was loaded with amiodarone, received 3 amps of bicarbonate, 1 amp of calcium gluconate, and magnesium during this time. After several more rounds of CPR he had ROSC and was started on an epinephrine drip, ultimately requiring both vasopressin and norepinephrine as well she maintain his blood pressures. Repeat labs post arrest demonstrated a surprisingly and relatively unremarkable ABG with some improvement in his hyperkalemia, creatinine, and lactic acid level. His LFTs remained stable well troponin nearly doubled. Chest x-ray showed some congestive changes, with ET tube in appropriate position. The patient's and son were called given his poor prognosis and they agreed that Jarret would not want extraordinary measures and his code status was changed to do not resuscitate. Approximately 2 hours thereafter his blood pressure began to further deteriorate, he went into PEA, and peacefully at around 22:00. Review of Systems Review of Systems: Narrative: Unable to be obtained given clinical condition as detailed above. [facility] Past Medical History Medical History (Updated 02/20/20 @ 22:12 by Sandi Clark PA-C) Anxiety Benign prostatic hyperplasia CHF (congestive heart failure), NYHA class I Chronic pain syndrome Degenerative joint disease Gout Hyperlipidemia Hypertension Insulin dependent type 2 diabetes mellitus Nephrolithiasis Obstructive sleep apnea Pacemaker Prostate cancer Surgical History Surgical History (Updated 02/20/20 @ 22:05 by Sandi Clark PA-C) History of arthroplasty of right knee History of implantable cardioverter-defibrillator (ICD) insertion Family History Family History Father Heart disease Mother Hypertension Dementia Other Cerebrovascular accident Family history of arthritis Family history of heart disease in male family member before age 55 Social History Social History (Updated 02/20/20 @ 22:06 by Sandi Clark PA-C) Social History: The patient [place] his [place]
--- NOTE | 2020-02-19 17:05 | WPDPROCEDUR ---
Procedures Intubation Intubation Date: 02/19/20 <BIPIN Seaman Last Filed: 02/19/20 19:33> Intubation Time: 17:05 <BIPIN Seaman Last Filed: 02/19/20 19:33> Consent: No consent obtained, patient was intubated emergently. <BIPIN Seaman Last Filed: 02/19/20 19:33> A pre-procedural Time-Out was completed immediately before starting the procedure and confirmed: Patient Identification, Site, Procedure, Patient Position and the Availability of Requisite Equipment: Yes <BIPIN Seaman Last Filed: 02/19/20 19:33> Sedative: etomidate <BIPIN Seaman Last Filed: 02/19/20 19:33> Mg given: 20 <BIPIN Seaman Last Filed: 02/19/20 19:33> Paralytic: rocuronium <BIPIN Seaman Last Filed: 02/19/20 19:33> Mg given: 50 <BIPIN Seaman Last Filed: 02/19/20 19:33> Laryngoscope: Rl (4 MAC ) <BIPIN Seaman Last Filed: 02/19/20 19:33> Assist device used: fiber optic device ([place] scope) <BIPIN Seaman Last Filed: 02/19/20 19:33> ET tube size: 8 <BIPIN Seaman Last Filed: 02/19/20 19:33> Tube secured depth (cm): 24 <BIPIN Seaman Last Filed: 02/19/20 19:33> Tube secured location: lips <BIPIN Seaman Last Filed: 02/19/20 19:33> Tube placement confirmation: visualized tube passing through cords, equal breath sounds bilaterally, no breath sounds over epigastrium and confirmation by capnometry <BIPIN Seaman Last Filed: 02/19/20 19:33> Intubation complications: none and other (Patient went into PEA within about 5 minutes of intubation.) <Sandi Clark PA-C - Last Filed: 02/19/20 19:33> Additional comments: Dr. Douglass, attending ED physician, was available if needed. <Sandi Clark PA-C - Last Filed: 02/19/20 19:33>
--- NOTE | 2020-02-19 17:43 | PC.NURSE ---
Pt arrived to ICU 6 from ED appeared dusky, gasping, minimally responsive, agonal breathing. Immediately began bagging pt and PA to bedside for intubation. ETT placed, breath sounds heard bilaterally with +ETCo2 color change, pt then went into PEA rhythm and ACLS initiated. See Code flow sheet for details.
[2020-02-19 17:52] LABS: Basophils Percent Auto 0.2 % (0.2-1.2); Eosinophils Percent Auto 0.2 % (0-4.4); Hematocrit 46.5 % (42.0-52.0); Hemoglobin 15.1 g/dL (14.0-18.0); Immature Granulocyte Absolute 0.07 K/mm3 (0.00-0.031); Immature Granulocyte Percent A 0.6 % (0-0.5); Immature Platelet Fraction Pct 6.5 % (0.9-11.2); Lymphocytes Absolute Auto 2.61 K/mm3 (0.9-3.2); Lymphocytes Percent Auto 22.8 % (18.3-44.2); Mean Corpuscular HGB Conc 32.5 g/dl (32-36); Mean Corpuscular Hemoglobin 32.4 pg (26-34); Mean Corpuscular Volume 99.8 fl (80-100); Mean Platelet Volume 11.6 fl (7.4-10.4); Monocytes Absolute Auto 0.4 K/mm3 (0.1-0.6); Monocytes Percent Auto 3.7 % (2.6-8.5); Neutrophils Absolute Auto 8.3 K/mm3 (1.3-6.7); Neutrophils Percent Auto 72.5 % (45.5-73.1); Nucleated Red Blood Cells Absolute Auto 0.2 K/mm3 (0.0-0.012); Nucleated Red Blood Cells Perc 1.7 % (0.0-0.2); Platelet Count Result 149 k/mm3 (150-375); Red Blood Count 4.66 M/mm3 (4.6-6.20); Red Cell Distribution Width 14.1 % (11.5-14.5); White Blood Count 11.4 K/mm3 (4.5-10.0)
[2020-02-19 17:58] LABS: Fractional Inspired Oxygen 100 %; HCO3 ABG 16.3 mEq/l (22.0-26.0); Oxygen Content ABG 23.4 %vol (16.0-22.0); Oxygen Saturation ABG 99.8 % (95.0-100.0); Oxyhemoglobin 98.3 % THb (90.0-100.0); PO2 FiO2 Ratio Arterial Blood 3.54 %; Total Hemoglobin 16.3 g/dL (12.0-18.0)
[2020-02-19 17:59] LABS: Device OTHER DEVICE; Site Drawn RIGHT FEMORAL
[2020-02-19 18:09] LABS: Lactic Acid 6.6 mmol/L (0.7-2.1)
[2020-02-19 18:10] LABS: Albumin Level 2.7 g/dL (3.5-5.1); Alkaline Phosphatase 143 U/L (38-126); Anion Gap 8 mmol/L (8-16); Aspartate Amino Transferase 573 U/L (17-59); Bilirubin,Total 3.7 mg/dL (0.2-1.3); Calcium 10.9 mg/dL (8.4-10.2); Carbon Dioxide 26 mmol/L (22-30); Chloride 110 mmol/L (98-107); Estimated CRCL calculation 27 ml/min; Estimated Glomerular Filt Rate 25; Glucose 83 mg/dL (75-110); Phosphorus 6.7 mg/dL (2.5-4.5); Potassium 5.6 mmol/L (3.4-5.0); Sodium 144 mmol/L (137-145)
[2020-02-19 18:19] LABS: Troponin I 0.237 ng/mL (0.000-0.034)
--- NOTE | 2020-02-19 18:49 | PC.NURSE ---
See code flowsheet for details, ACLS continued 2582-7931 (ROSC), 3831-8404 (ROSC), 2125-4897 (ROSC). MIREYA Clark and MD Douglass to bedside throughout. +femoral pulse at this time, BP 79/52, Epi at 10mcg/min, Levo at 30mcg/min.
[2020-02-19] MEDS: NOREPINEPHRINE 8 MG/D5W 250 ML 8 MG/250 ML BAG 56.25 MG IV CONT (18:58)
[2020-02-19] MEDS: EPINEPHrine INJ 1 MG in DEXTROSE 5% IN WATER 250 ML 150.6 MG IV CONT (19:00)
[2020-02-19 19:45] LABS: Blood Urea Nitrogen 124 mg/dL (9-20)
[2020-02-19 19:55] LABS: Alanine Aminotransferase 734 U/L (4-50)
[2020-02-19 20:02] LABS: Mean Platelet Volume 11.8 fl (7.4-10.4); Platelet Count Result 155 k/mm3 (150-375)
[2020-02-19 20:13] LABS: Partial Thromboplastin Time 37.3 SECONDS (22.3-36.8)
[2020-02-19 20:15] LABS: INR 2.9; Prothrombin Time 30.6 Seconds (11.1-14.7)
[2020-02-19] MEDS: SODIUM CHLORIDE 0.9% IV 1,000 ML 100 ML IV CONT (20:18)
[2020-02-19] MEDS: VASOPRESSIN INJ 100 UNITS in DEXTROSE 5% 95 ML IV CONT (20:22)
[2020-02-19 20:25] LABS: Fibrinogen 78 mg/dl (215-510)
[2020-02-19 20:28] LABS: Troponin I 0.368 ng/mL (0.000-0.034)
[2020-02-19 20:30] LABS: D Dimer 19.87 ug/mL (<0.48)
[2020-02-19] MEDS: CENTRAL LINE FLUSH 10 ML IV PUSH (21:00)
[2020-02-19 21:30] LABS: Hepatitis B Surface Antigen Negative (Negative)
[2020-02-19 21:38] LABS: HAV RESULT Negative (Negative); Hepatitis B Core IgM Result Negative (Negative)
[2020-02-19 21:49] LABS: Hepatitis C Virus Antibody Negative (Negative)
--- NOTE | 2020-02-19 22:39 | PC.NURSE ---
1999-Spoke to Warner Anderson who resquested call back later to complete admission assessment. 2199- Spoke to Warner Anderson, gave update about patient status and imminent expiration. states she would not like to return to the hospital at this time.
--- NOTE | 2020-02-19 22:44 | PC.NURSE ---
Unable to obtain past medical history due to patient condition and expiration.
[2020-02-19 23:37] LABS: SARS-CoV-2 RNA PCR Negative
--- NOTE | 2020-02-20 01:38 | PC.NURSE ---
pt placed on morgue cooler at 2330
--- NOTE | 2020-02-20 08:24 | PM.DDS ---
Discharge Sum: Prov Provider Primary care physician: Judith Kelsey, ASSOCIATE MEDICAL DIRECTOR Admitting provider: Macy Ahumada MD Consults: 02/19/20 13:52 Consult to Physician Routine Comment: Consulting Provider: Nissa Mcdowell Reason for consultation: renal failure, transaminitis Has provider been notified: Yes Discharge Sum: Summary Date and Time Date of admission: 02/19/20 13:52 PATIENT HAS A COMBINED HISTORY AND PHYSICAL AND SUMMARY ALREADY DOCUMENTED Additional Data Attending physician: Macy Ahumada MD
== END 2020-02-19 22:30 | disposition expired | DRG 871 ==
LOC: ANHED 09:32 → ANHICU 14:28
PROVIDERS: Physician Assistant; Admitting Provider Family Medicine; Emergency Provider General Practice; PCP Nurse Practitioner Adult Health; Visit Provider Family Medicine
DX: A41.9 Sepsis, unspecified organism (principal); R65.21 Severe sepsis with septic shock; D65 Disseminated intravascular coagulation [defibrination syndrome]; G93.41 Metabolic encephalopathy; J96.00 Acute respiratory failure, unspecified whether with hypoxia or hypercapnia; I21.4 Non-ST elevation (NSTEMI) myocardial infarction; N17.9 Acute kidney failure, unspecified; I49.01 Ventricular fibrillation; Z20.828 Contact with and (suspected) exposure to other viral communicable diseases; I11.0 Hypertensive heart disease with heart failure; I50.9 Heart failure, unspecified; E87.5 Hyperkalemia; G47.33 Obstructive sleep apnea (adult) (pediatric); E11.9 Type 2 diabetes mellitus without complications; G89.4 Chronic pain syndrome; N40.0 Benign prostatic hyperplasia without lower urinary tract symptoms; M19.90 Unspecified osteoarthritis, unspecified site; E78.5 Hyperlipidemia, unspecified; M1A.9XX0 Chronic gout, unspecified, without tophus (tophi); Z79.4 Long term (current) use of insulin; Z85.46 Personal history of malignant neoplasm of prostate; Z96.651 Presence of right artificial knee joint; Z87.891 Personal history of nicotine dependence; W06.XXXA Fall from bed, initial encounter
CPT/HCPCS: 31500; 36415; 36556; 36600; 51702; 70450; 71045; 74176; 80053; 80074; 81001; 82140; 82550; 82805; 83605; 83735; 84100; 84484; 85025; 85049; 85055; 85380; 85384; 85610; 85730; 86850; 86900; 86901; 87040; 87635; 92950; 93005; 94002; 94660; 96365; 96375; 99291; C1751; C9803; J0171; J0282; J0610; J0743; J1630; J1815; J2250; J2543; J3010; J3370; J7030; J7060; U0003